=== PATIENT | female | born 1980 | race Caucasian/White ===

== ENCOUNTER 2017-12-28 01:25 | Emergency (ER) | payer OTHER, SELFPAY ==
[2017-12-28 01:28] VITALS: BP 150/102; PULSE 85; RESP 17; TEMP 37.2; O2SAT 95; BMI 37.5
--- NOTE | 2017-12-28 02:19 | ED.VISSUMM ---
- ER Visit Summary Date of Service: 12/28/17 Chief Complaint: Lower back pain History of Present Illness: The patient is a 37 yo F without any significant past medical or surgical history. 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 Today she had gradual onset of lower back pain. Denies any falls or other injuries. States it does radiate to her buttock. Denies any weakness or bowel or bladder incontinence. No fever. No prior back history or surgery. Denies any lower extremity weakness. Physical Examination: Well-appearing middle-age female. Vital signs are stable afebrile. H EENT exam unremarkable. Neck nontender. Lungs clear to auscultation bilaterally. Heart regular rate and rhythm no murmur. Abdomen is soft nontender. Normal bowel sounds no peritoneal signs. She is moving all 4 extremities. They are neurovascularly intact. She has 5 out of 5 fire patrol strength and normal range of motion in the upper extremities. She has full range of motion of both lower extremities. 5 out of 5 dorsi plantar flexion. Negative straight leg raise on the left mild on the right at 45?. Back exam she has mild lumbar and paralumbar soft tissue tenderness. Also along the SI joint. There is no ecchymosis or bruising no redness or warmth. Neurologic exam is normal. NIH stroke. She has normal motor strength and sensation of both upper and lower extremities. Test Results: None Emergency Department Course and Treatment: P.o. Naprosyn here. Treatment Plan: Naprosyn for pain and inflammation. Follow-up with corporate care as needed. Light duty at work for 1 week. Disposition: Discharged Impression: Acute lumbar strain with sciatica This note was generated with [employer] dictation software. It may contain incorrect words, spelling, and punctuation that were not noted in review of the chart prior to signing ED Disposition - Plan for ED Patient: Chief Complaint: Back
--- NOTE | 2017-12-28 02:23 | ED.DCSUM_ITS ---
- ER Visit Summary Date of Service: 12/28/17 Chief Complaint: Lower back pain History of Present Illness: The patient is a 37 yo F without any significant past medical or surgical history. 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 Today she had gradual onset of lower back pain. Denies any falls or other injuries. States it does radiate to her buttock. Denies any weakness or bowel or bladder incontinence. No fever. No prior back history or surgery. Denies any lower extremity weakness. Physical Examination: Well-appearing middle-age female. Vital signs are stable afebrile. H EENT exam unremarkable. Neck nontender. Lungs clear to auscultation bilaterally. Heart regular rate and rhythm no murmur. Abdomen is soft nontender. Normal bowel sounds no peritoneal signs. She is moving all 4 extremities. They are neurovascularly intact. She has 5 out of 5 relay associate strength and normal range of motion in the upper extremities. She has full range of motion of both lower extremities. 5 out of 5 dorsi plantar flexion. Negative straight leg raise on the left mild on the right at 45?. Back exam she has mild lumbar and paralumbar soft tissue tenderness. Also along the SI joint. There is no ecchymosis or bruising no redness or warmth. Neurologic exam is normal. NIH stroke. She has normal motor strength and sensation of both upper and lower extremities. Test Results: None Emergency Department Course and Treatment: P.o. Naprosyn here. Treatment Plan: Naprosyn for pain and inflammation. Follow-up with corporate care as needed. Light duty at work for 1 week. Disposition: Discharged Impression: Acute lumbar strain with sciatica This note was generated with [employer] dictation software. It may contain incorrect words, spelling, and punctuation that were not noted in review of the chart prior to signing ED Disposition - Plan for ED Patient: Chief Complaint: Back
--- NOTE | 2017-12-28 02:23 | ED.DEP ---
ED Disposition - Plan for ED Patient: Disposition: Home or Assisted Living Chief Complaint: Back Instructions: ED Sprain Strain Lumbar, ED Sciatica Prescriptions: Naproxen [Naprosyn] 500 mg PO BID PRN PRN #20 tab PRN Reason: Pain Referrals: [facility] [GROUP OF PHYSICIANS] - As Needed Additional Instructions: Naprosyn for pain and inflammation. Massage lower back. Alternate ice and heat to relax the muscle and not down the inflammation. Follow-up with corporate care as needed. Return if leg weakness, numbness or bowel or bladder incontinence.
[2017-12-28] MEDS: Naproxen 375 MG Tablet PO (02:31)
== END 2017-12-28 02:36 | disposition home or self-care (01) ==
PROVIDERS: Emergency Provider Emergency Medicine
DX: M54.40 Lumbago with sciatica, unspecified side (principal); S39.012A Strain of muscle, fascia and tendon of lower back, initial encounter; X50.0XXA Overexertion from strenuous movement or load, initial encounter; Y93.89 Activity, other specified; Y92.129 Unspecified place in nursing home as the place of occurrence of the external cause; Y99.0 Civilian activity done for income or pay
CPT/HCPCS: 99283

== ENCOUNTER → 2018-01-01 15:25 | Outpatient (CLI) | payer OTHER, SELFPAY ==
--- NOTE | 2018-01-01 15:28 | RAD_ITS ---
STUDY: X-RAY - LUMBAR SPINE REASON FOR EXAM: Female, 37 years old. Low back pain after lifting injury 5 nights ago. TECHNIQUE: 3 view(s) of the lumbar spine were obtained. COMPARISON: None FINDINGS: Normal lumbar lordosis. There is no substantial scoliosis. There is a normal alignment of the vertebrae. There are 6 typical lumbar vertebral bodies. Mild disc narrowing and minimal spondylitic endplate changes at most lumbar levels. Degenerative facet arthrosis primarily at L4-5. Mirena IUD present and compatible with intrauterine position. RAD/Lumbar Spine 2 or 3 Views IMPRESSION: Normal alignment of the lumbar spine without fracture, osteolytic or blastic bone lesion. Mild degenerative disc changes. Degenerative facet arthrosis primarily at L4-5. Electronically Signed: Christiana Bedoya MD at 15:44 EDT , Service support ,
== END ==
PROVIDERS: Visit Provider Physician Assistant Medical
DX: S39.012A Strain of muscle, fascia and tendon of lower back, initial encounter (principal)
CPT/HCPCS: 72100

== ENCOUNTER 2018-02-02 17:30 | Outpatient (RCR) | payer OTHER, SELFPAY ==
--- NOTE | 2018-01-19 17:52 | HP.PTEVAL ---
Patient's Visit Information SLOAN HENDRIX is a 37 year old F referred to Physical Therapy by DEION Jansen with a diagnosis of L/S muscle strain. Date of Evaluation: 01/19/18 Physical Therapist: Sony Neal DPT, OC - Visit Plan Frequency: 2x /Week Duration: 2-4 Weeks Plan: 2x/week for 2 weeks: monitor improvement with flexion ex, progress to rotation ROM then DLS and body mechanics for patient transfers to tolerance. May use ES if needed. 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 Started earlier that morning and got worse and worse. It is steadily improving and is 75% better now. Has LBP intermittently and worse with lifting and carrying. Gets some leg pain shooting all the way down both legs transiently a number of times a day with sitting too long in same position. Sits off to L to avoid pressure. Sleep is interrupted as she needs ibuprofen to sleep. Works 3rd shift and is worse after work. [employer] with patients and on feet alot. Was on light duty until . Home activities are worse but she does them. Basic ADLs are OK. Enjoys TV. and can still do that. Denies numbness or tingling. No bladder problems, coughing and sneezing are OK. - Pain LBP Pain Intensity (Out of 10): 1 Pain Intensity Range: 0, 8 - Objective Walks I but slow. Transitions I but slow. - slump and - SLR,. L/S AROM ext max limited with midline pain, flexion slow and stretchy in back, SB no problem. reflexes 2/3 patella and achilles. Sensation LE WNL to gross light touch. Strength LE 4/5 without pain. repeated motion: eil : B LB(arms hurt:) Increased L/S ROM. fis: - Goals Goal 1:: Pain in LB abolished 95% Goal Time Frame: 2-4 Weeks Goal 2:: Pt I approp HEP/mechanics to minimize future problems Goal Time Frame: 2-4 Weeks Goal 3:: Sleep without need for meds. Goal Time Frame: 2-4 Weeks Goal 4:: Work without increased pain Goal Time Frame: 2-4 Weeks - Rehabilitation Potential Physical Therapy Diagnosis: Lumbar strain. Rehabilitation Potential: Fair - Anticipated Interventions Patient/Client Instruction: Educate patient on: Plan of Care For the Purpose of:: To decrease pain Therapeutic Exercise to Include: Strength training, Passive ROM, Active ROM, Dynamic Lumbar Stabilization For the Purpose of:: To decrease pain, To increase ROM, To improve muscle performance and motor function, To improve ability of physical actions for home/community/work/leisure TENS: Yes Thermo therapy (hot pack): Yes For the Purpose of:: To decrease pain Thank you for the opportunity to evaluate your patient. For Medicare and Medicare HMO plans, please review the plan of care and approve it. It will need to be FAXED BACK to us at [phone] for Medicare purposes. Please let me know if there are questions or concerns regarding this plan of care. Physician Signature: Date:
--- NOTE | 2018-02-02 17:59 | HP.PTDCSUM ---
HP - PT D/C Summary It has been my pleasure to treat SLOAN HENDRIX under orders from DEION Jansen, for the diagnosis of L/S muscle strain for a total of 4 visit(s). Discharge Date: 02/02/18 Please see the following information for a summary of their discharge status. - Subjective Subjective: Much better overall. Not hurting anymore. No pain except slightly stiff in morning. No pain over long weekend. Activities are normal. Sleep is good. Doing everything at work without a problem. Did well at work last and will work again tonight. HEP helps to loosen her up. No questions on body mechanics of transfer taught to андрей. - Pain LBP Pain Intensity (Out of 10): 5 - Overall Improvement % Improvement: 90 - Objective Objective/Function: full aROM L/S without pain. Good body mechanics with lifting demonstrated without VC today. DOING WELL - Goals Goal 1:: Pain in LB abolished 95% Goal Progress: Goal Met Goal 2:: Pt I approp HEP/mechanics to minimize future problems Goal Progress: Goal Met Goal 3:: Sleep without need for meds. Goal Progress: Goal Met Goal 4:: Work without increased pain Goal Progress: Goal Met - Plan Plan: D/C - D/C Information Discharge Comments: Doing well and no pain in a long time. has stretching and strengthening exercises to continue at home. will contact doctor if pain returns. If there are questions or concerns regarding this patient's physical therapy, please feel free to call me at [phone]. Thank you for the referral of this patient. Sincerely, Sony Neal, DPT, OC
== END 2018-02-02 19:00 | disposition home or self-care (01) ==
LOC: PT 17:30
PROVIDERS: Visit Provider Physician Assistant Surgical
DX: S39.012D Strain of muscle, fascia and tendon of lower back, subsequent encounter (principal)
CPT/HCPCS: 97110; 97162; 97530